=== PATIENT | female | born 1940 | race Two or more races ===

== ENCOUNTER 2018-10-13 12:12 | Emergency (ER) | payer MEDICARE, OTHER ==
[~2018-10-13] VITALS: Ht 175.3 cm; Wt 85.7 kg
--- NOTE | 2018-10-13 12:36 | NUR ---
BIB [facility] FOR RT THUMB LAC, TO ER BED 10, HOKED TO MONITOR, AWAITING MD SMITH.
--- NOTE | 2018-10-13 12:50 | NUR ---
SHAAN LOTT AT BEDSIDE
[2018-10-13] MEDS ORDERED: TDAP [DIPH/PERTUSSIS/TET] 0.5 ML VIAL IM ONE ×2 (13:00→13:07)
--- NOTE | 2018-10-13 13:20 | NUR ---
Patient discharged to home in stable condition. Written and verbal after care instructions given. Patient verbalizes understanding of instruction.
[2018-10-13 13:21] VITALS: BP 138/98
== END 2018-10-13 13:21 | disposition home or self-care (01) ==
LOC: ER 12:17
DX: S61.011A Laceration without foreign body of right thumb without damage to nail, initial encounter (principal); I10 Essential (primary) hypertension; Z98.890 Other specified postprocedural states; W25.XXXA Contact with sharp glass, initial encounter; Y93.E8 Activity, other personal hygiene; Y92.89 Other specified places as the place of occurrence of the external cause; Y99.8 Other external cause status
CPT/HCPCS: 90715